=== PATIENT | male | born 1970 | race Caucasian/White ===

== ENCOUNTER 2022-03-16 19:38 | Emergency (ER) | payer SELFPAY ==
[2022-03-16] MEDS ORDERED: PROTONIX 40 MG40 M1 PO (21:37)
== END 2022-03-16 21:48 | disposition home or self-care (01) ==
LOC: ER1 19:38
DX: K22.2 Esophageal obstruction (principal); I10 Essential (primary) hypertension; Z91.018 Allergy to other foods
CPT/HCPCS: 96374; 99283; J1610